=== PATIENT | female | born 1955 | race Caucasian/White ===

== ENCOUNTER → 2017-01-26 | Day surgery (SDC) | payer OTHER ==
[~2017-01-26] MED LIST: ACETAMINOPHEN 1000 MG/100 ML VIAL IV ONE; ACETAMINOPHEN/HYDROcodone 325 MG/5 MG TAB ONE; BUPIVACAINE/EPINEPHRINE 0.25% PF 30 ML VIAL ONE; LACTATED RINGER'S 1000 ML INJ 1,000 ML ONE; LIDOCAINE 1%/EPINEPHrine 1:100,000 SOLN 30 ML VIAL ONE; MEPERIDINE HCL 25 MG/ML VIAL ONE; MIDAZOLAM HCL 2 MG/2 ML VIAL ONE; NS 100 ML (PAB BAG) 100 ML IV ONE; ONDANSETRON HCL 4 MG/2 ML VIAL IV PUSH ONE; PROPOFOL 200 MG/20 ML AMP IV ONE; VANCOMYCIN 500 MG VIAL ONE
--- NOTE | 2017-01-27 08:19 | TN ---
cc: KIRT MORIN M.D. DATE OF SURGERY 01/26/2017 PREOPERATIVE DIAGNOSIS Bilateral macromastic ptotic breasts. POSTOPERATIVE DIAGNOSIS Bilateral macromastic ptotic breasts PROCEDURE Bilateral reduction mammoplasty. SURGEON Kirt Morin MD ANESTHESIA LMA general ESTIMATED BLOOD LOSS Minimal COMPLICATIONS None DRAINS None PROCEDURE IN DETAIL She was properly consented, and marked as follows. The NAC was set at 22 cm from the sternal notch, 42 mm areolar diameter and we utilized a center inferior pedicle with a base of 8 cm. With this, a breast block was applied after the patient was properly placed under LMA anesthesia and we utilized a total of 60 cc of a combination of 1% lidocaine with epinephrine mixed with 0.25% Marcaine in a 2:1 ratio, 30 cc per breast. I proceeded and performed the sterilization of the skin with Betadine solution and sterile draping applied. Utilizing the Vicente's maneuver, the center inferior pedicle was de-epithelialized preserving 42 mm of the areola. At this point excess of breast tissue superiorly, laterally and medially was removed utilizing electrocautery. At this point we assured meticulous hemostasis, the flaps were properly brought together utilizing 2-0 Monocryl suture in the dermis and subcu. The new nipple-areolar complex was brought out in the anatomical position and secured utilizing the same suture material. Dermabond Prineo was utilized for the skin. The contralateral side was approached in exactly the same manner. Good viability of tissue was noted at the end of the case. The patient was awakened and extubated in the operating room, transferred back to the postanesthesia care unit in stable condition. There were no complications appreciated. The patient tolerated the procedure fairly well. MD MARCELLA Null/ABRAHAM /9:44 AM /8:12 AM FAUSTO
== END | disposition home or self-care (01) ==
LOC: ESDC 06:07
PROVIDERS: ATTEND Plastic Surgery
DX: Z41.1 Encounter for cosmetic surgery (principal)
CPT/HCPCS: 00402; 19318; J0131; J2175; J2250; J2405; J3010; J3370; J7120

== ENCOUNTER → 2017-07-08 | Day surgery (SDC) | payer OTHER ==
--- NOTE | 2017-07-07 11:39 | TH ---
cc: MICHAELA SOLORZANO M.D. DATE 07/07/2017 DATE OF 1955 PROCEDURE TO BE PERFORMED Slim lipoma contouring of the torso and arms. HISTORY OF PRESENT ILLNESS Ms. Cohen is a pleasant 61-year-old female who wishes to undergo an aesthetic contouring procedure. She is a healthy individual. PAST MEDICAL HISTORY She has a past medical history of: 1. Nephrolithiasis 2. Knee problems 3. Corneal dystrophy PAST SURGICAL HISTORY 1. She had a blepharoplasty 2. Laser resurfacing rhytidectomy 3. Kidney stone removal 4. [place] tooth 5. Tonsillectomy removed 6. I have performed a reduction mammoplasty back on December of this current year. MEDICATIONS Her current medication is: 1. Bupropion 2. Biotin ALLERGIES SHE IS ALLERGIC TO SULFA AND PENICILLIN. HABITS Benign REVIEW OF SYSTEMS Unremarkable PHYSICAL EXAM CONSTITUTIONAL: General appearance. The patient is a well-developed female in no acute distress. Body habitus is within normal limits. There appear to be no deformities. Appears to have attention to grooming. HEENT: Eyes Conjunctivae and lids are within normal anatomical limits. The pupils are reactive to light and accommodation, size, and symmetry. There is no evidence of exudate, hemorrhage, or vessel change. Ears, mouth, nose, and throat The external inspection of the ears and nose fails to demonstrate any pathology, scars, lesions, or masses. Nasal mucosa, septum, and turbinates appear to be well hydrated as well as the lips and gums. No evidence of masses in the hypopharynx or submental area. RESPIRATORY: The patient shows no evidence of intercostal refractions. Otherwise, lungs are clear to auscultation without any abnormal sounds or rubs. CARDIOVASCULAR: The patient has a normal heart rate and rhythm. There is no evidence of noticed carotid bruits. Femoral pulses and pedal pulses in extremities are also within normal limits. GASTROINTESTINAL/ABDOMEN: Soft with no evidence of masses or tenderness. Unable to palpate the liver or spleen. No evidence of hernia. MUSCULOSKELETAL: Appears to be reasonable range of motion on the head, neck, spine, ribs, pelvis, right upper extremity, left upper extremity, right lower extremity, and left lower extremity. The muscle strength and tone appears to be equal and within accepted limits. SKIN: There is no rashes, lesions, or ulcers on the trunk, back, and extremities. NEUROLOGICAL: Examination is grossly normal. PSYCHIATRIC: The patient appears to have good orientation of time, place, and person. Does not appear to have any mood effects of depression, anxiety, or agitation. 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 PLAN The plan is slim lipo of the torso and arms. The risks and possible complications discussed with the patient. MD MARCELLA Null/ABRAHAM /11:21 AM /11:29 AM
[~2017-07-08] MED LIST changes: +BUPIVACAINE/EPINEPHRINE 0.25% 50 ML VIAL ONE; -BUPIVACAINE/EPINEPHRINE 0.25% PF 30 ML VIAL ONE; +EPINEPHrine HCL (1:1000) 1 MG/ML VIAL OTHER ONE; +LACTATED RINGER'S 1000 ML INJ 1,000 ML IV ONE; +LIDOCAINE 1%/EPINEPHrine 1:100,000 SOLN 20 ML VIAL ONE; -LIDOCAINE 1%/EPINEPHrine 1:100,000 SOLN 30 ML VIAL ONE; +LIDOCAINE HCL 1% PF 30 ML VIAL ONE; -MEPERIDINE HCL 25 MG/ML VIAL ONE; +MEPERIDINE HCL 50 MG/ML VIAL ONE; +MORPHINE SULFATE 4 MG/ML INJ ONE; +NEOMYCIN/POLYMYXIN/BACITRACIN OINT 15 GM TUBE ONE; -NS 100 ML (PAB BAG) 100 ML IV ONE; +SODIUM CHLOR 0.9% 250 ML INJ 250 ML IV ONE
--- NOTE | 2017-07-08 14:04 | TN ---
cc: KIRT MORIN M.D. DATE OF SURGERY: 07/08/2017 PREOPERATIVE DIAGNOSIS Lipodystrophy arms and torso. POSTOPERATIVE DIAGNOSIS Lipodystrophy arms and torso. PROCEDURE Slim lipo. SURGEON Kirt Morin MD ANESTHESIA LMA general. ESTIMATED BLOOD LOSS Minimum. TOTAL ENERGY UTILIZED 80,000 joules. TOTAL I&O's Including IV fluids 6,700 in and 6,075 out. TOTAL TUMESCENT ____ total tumescent applied 4800. COMPLICATIONS None. PROCEDURE The patient was properly consented, marked, anesthetized. The skin was sterilized with Betadine solution. Utilizing [employer] draping system a sterile draping was applied. We began by tumescing the arms through puncture wounds that were done utilizing 11 blade and the tumescent was carried out. Of those 700 was applied on each arm. The mixture was in 1000 ccs of normal saline, 30 ccs of lidocaine plain was mixed with 1 cc of epinephrine 1:1000. Of those the arm was tumesced, 10,000 joules were delivered in each arm and then evacuation took place with the proper 3.5 mm ___ cannula. In each arm ins and outs, right 700 in, out of 850, left arm 700 in, out 750. Attention was directed to the torso and flanks where 2000 ccs infiltrated and we took ___ about 2625. Finally the patient was turned [id number] and tumescent was applied 700 in on the right side, 900 out. On the left side 700 in and 950 out. It should be mentioned that the torso I delivered 40,000 joules, 10,000 per quadrant and on each torso, the left and right 10,000. Again, total of 80,000 joules per square centimeters. Each and every one of the puncture wounds again that were done with 11-blade was closed utilizing 5-0 Chromic suture and Steri-Strips applied. For the arms I utilized Logan and Myles for coverage and the abdomen and torso in abdominal binder. She tolerated the procedure well. She was awakened, extubated in the operating room and transferred back to the postanesthesia care unit in stable condition. No complications were appreciated. The patient tolerated the procedure fairly well. MD MARCELLA Null/ANTHONY /11:29 AM /12:12 PM
== END | disposition home or self-care (01) ==
LOC: ESDC 07:04
PROVIDERS: ATTEND Plastic Surgery
DX: Z41.1 Encounter for cosmetic surgery (principal)
CPT/HCPCS: 00300; 00400; 15877; 15878; J0131; J0171; J2175; J2250; J2270; J2405; J3010; J3370; J7050; J7120